=== PATIENT | male | born 1945 ===

== ENCOUNTER 2019-10-24 04:51 | Outpatient (CLI) | payer OTHER ==
[2019-10-26 12:25] LABS: C DIFF ANTIGEN POSITIVE (NEGATIVE); C DIFF SPECIMEN=DIARRHEA? ACCEPTABLE; C DIFFICILE TOXINS A&B POSITIVE (Neg)
== END 2019-10-24 23:59 | disposition home or self-care (01) ==
LOC: LAB SPEC 04:51
PROVIDERS: ATTEND Specialist
DX: Z93.1 Gastrostomy status (principal)
CPT/HCPCS: 87324; 87449